=== PATIENT | female | born 1975 | race Caucasian/White ===

== ENCOUNTER 2017-02-24 10:17 | Emergency (ER) | payer BC ==
[2017-02-24] MEDS ORDERED: NS 0.9% 1000 ML* 2,000 ML IV ONE (10:32)
[2017-02-24] MEDS ORDERED: Ondansetron INJ* 2 MG/ML VIAL IV ONE ×2 (10:33→11:18)
[2017-02-24] MEDS ORDERED: Morphine INJ* 4 MG/ML 1 ML SYRINGE IV ONE (10:33)
[2017-02-24] MEDS ORDERED: Ketorolac INJ* 30 MG/ML 1 ML VIAL IV PUSH ONE (10:43)
[2017-02-24 10:51] LABS: Hematocrit 39 % (35-47); Hemoglobin 12.7 g/dl (12.0-16.0); Mean Corpuscular HGB Conc 33 g/dl (31-36); Mean Corpuscular Hemoglobin 30 pg (27-31); Mean Corpuscular Volume 90 fL (80-97); Mean Platelet Volume 9 um3 (7.4-10.4); Red Blood Count 4.31 10^6/ul (4.0-5.4); Red Cell Distribution Width 14 % (10.5-15); White Blood Count 8.3 10^3/ul (3.5-10.8)
[2017-02-24] MEDS ORDERED: HYDROmorphone* 1 MG/ML 1 ML SYR IV SLOW PU ONE (11:12)
[2017-02-24 11:13] LABS: ALT 10 U/L (7-52); AST 6 U/L (13-39); Alkaline Phosphatase 58 U/L (34-104); Anion Gap 7 mmol/L (2-11); BUN/Creatinine Ratio 8.4 (8-20); Blood Urea Nitrogen 8 mg/dL (6-24); C Reactive Protein < 1.00 mg/L (< 5.00); CO2 Carbon Dioxide 27 mmol/L (22-32); Chloride 106 mmol/L (101-111); EGFR Non-African American 64.5 (>60); Globulin 2.6 g/dL (2-4); Glucose 124 mg/dL (70-100); Lipase < 10 U/L (11.0-82.0); Potassium 3.5 mmol/L (3.5-5.0); Sodium 140 mmol/L (133-145); Total Protein 6.6 g/dL (6.4-8.9)
[2017-02-24] MEDS ORDERED: Ondansetron INJ* 2 MG/ML VIAL ONE (11:18)
--- NOTE | 2017-02-24 12:30 | RAD ---
INDICATION: 2 hours of right lower quadrant pain COMPARISON: None. TECHNIQUE: Real-time transabdominal and transvaginal ultrasound examination of the female pelvis including grayscale and Doppler color flow imaging. FINDINGS: Uterus: The uterus is normal in size and echogenicity measuring 9.6 x 5.2 x 7.6 cm. The endometrial stripe is smooth and uniform measuring 1.5 cm in thickness. There is a small amount of fluid at the fundal height endometrium. There are top normal but not pathologically enlarged periuterine veins, more so on the left than the right. Ovaries: The right and left ovary measure 3.9 x 1.7 x 2.5 cm and 4.1 x 1.7 x 3.4 cm, respectively. Normal arterial and venous waveforms are identified. Appearance is within normal limits for the patient's age. There is no free fluid in the cul-de-sac. IMPRESSION: 1. Top normal but not pathologically enlarged periuterine veins are noted in the left pelvis. The pelvic vasculature will be further depicted on the subsequent CT of the abdomen and pelvis pending at the time of this dictation. 2. The endometrial stripe is mildly thickened and there is a small amount of endometrial fluid noted at the level of fundus. If clinically warranted follow-up pelvic ultrasound can be acquired in approximately 6 weeks.
--- NOTE | 2017-02-24 12:55 | RAD ---
INDICATION: RIGHT side flank pain. Nausea. COMPARISON: February 24, 2017 pelvic ultrasound. TECHNIQUE: Multidetector CT images were obtained from the lung bases to the ischial tuberosities. Evaluation of the viscera is limited without IV contrast. Multiplanar reformation. REPORT: Unremarkable visualized inferior thorax. Unremarkable incompletely visualized liver. Multiple partially calcified dependent gallstones in the gallbladder without additional CT abnormality of the gallbladder. Negative for biliary dilatation. Unremarkable pancreas and spleen. Negative for CT abnormality of the upper GI, small bowel, or infra cecal appendix. Negative for CT abnormality of the colon. Negative for ascites or free air. No significant hernias evident. Normal adrenal glands. Mild RIGHT hydroureteronephrosis is traced to a 3 mm maximum dimension ureterovesicular junction stone. Minimal associated perinephric and periureteral inflammatory stranding. No additional urolithiasis evident. Negative for LEFT hydronephrosis. Negative for focal renal lesions. LEFT side pelvic phlebolith noted. Unremarkable anteverted uterus and adnexal regions. Negative for lymphadenopathy. Normal diameter abdominal aorta and iliac arteries. Physiologic distention of the IVC. Negative for suspicious focal osseous lesions. IMPRESSION: Mild RIGHT hydroureteronephrosis is traced to a 3 mm maximum dimension ureterovesicular junction stone.
[2017-02-24 14:02] LABS: Urine Bacteria 1+ (Absent); Urine Bilirubin Negative (Negative); Urine Glucose Negative (Negative); Urine Nitrite Negative (Negative)
[2017-02-24 14:31] VITALS: BP 124/78
--- NOTE | 2017-02-24 16:38 | ED ---
Pio Barnes Thomas, scribed for Raul Velásquez MD on 02/24/17 at 1042 . Abdominal Pain/Female - HPI Summary HPI Summary: The pt is a 41 y/o F presenting to the ED c/o RLQ abd pain that began suddenly today at 10:00. 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 The pain is described as constant and is alleviated and alleviated by nothing. The pain is rated 10/10. She cannot find a comfortable position. She denies any pain yesterday. The pt additionally c/o diaphoresis, nausea, and vomiting. The pt denies dysuria, flank pain, and kidney pain. PMHx: negative for kidney stones , ovarian cysts. PSHx: tubal ligation. SHx: no smoking, no drinking, no illicit drugs. She has never felt pain like this before. She has not had an appendectomy. LNMP 1.5 weeks ago. - History of Current Complaint Chief Complaint: EDAbdPain Stated Complaint: ABD PAIN/VOMITING Time Seen by Provider: 02/24/17 10:34 Hx Obtained From: Patient, Other: - co-workers supply history Onset/Duration: Sudden Onset, Lasting Minutes - 10:00 today Timing: Constant Severity Currently: Severe Pain Intensity: 10 Pain Scale Used: 0-10 Numeric Location: Other - RLQ Radiates: Yes Radiates to: Back Aggravating Factor(s): Nothing Alleviating Factor(s): Nothing Associated Signs and Symptoms: Positive: Diaphoresis, Back Pain, Nausea, Vomiting. Negative: Other: - NEG: dysuria, flank pain, kidney pain Allergies/Adverse Reactions: Allergies Allergy/AdvReac Type Severity Reaction Status Date / Time No Known Allergies Allergy Verified 02/24/17 11:27 Home Medications: Home Medications Hydrocodone Bitartrate [Hysingla ER] 40 mg PO DAILY 02/24/17 [History Confirmed 02/24/17] Hydrocodone/Acetamin 10/325(NF [[place] 10/325 (NF)] 1 tab PO BID PRN 02/24/17 [ History Confirmed 02/24/17] Modafinil TAB* [Provigil TAB*] 200 mg PO DAILY 02/24/17 [History Confirmed 02/24] PMH/Surg Hx/FS Hx/Imm Hx Previously Healthy: Yes Cardiovascular History: Denies: Hx Myocardial Infarction History: Denies: Hx Kidney Stones, Other Problems/Disorders - NEG: Hx of ovarian cysts - Surgical History Surgery Procedure, Year, and Place: tubal ligation Infectious Disease History: Denies: Traveled Outside the [place] in Last 30 Days - Family History Known Family History: Positive: Other - NEG: kidney stones - Social History Occupation: Employed Full-time - as an ICU nurse Alcohol Use: Occasionally Hx Substance Use: No Hx Tobacco Use: No Smoking Status (MU): Never Smoked Tobacco Review of Systems Positive: Skin Diaphoresis. Negative: Fever Eyes: Negative ENT: Negative Cardiovascular: Negative Respiratory: Negative Positive: Abdominal Pain - RLQ, constant, 05/05, began today at 10:00, cannot find comfortable position, Vomiting, Nausea Genitourinary: Negative Negative: dysuria, flank pain, other - NEG: kidney pain Musculoskeletal: Negative Skin: Negative Neurological: Negative Psychological: Normal All Other Systems Reviewed And Are Negative: Yes Physical Exam - Summary Physical Exam Summary: The patient is well-nourished in obvious moderate distress with colicky pain. Her history is supplied primarily by coworkers. The skin is warm and diaphoretic and skin color reflects adequate perfusion. There is decreased skin turgor. HEENT: The head is normocephalic and atraumatic. The pupils are equal and reactive. The conjunctivae are clear and without drainage. Nares are patent and without drainage. Mouth reveals moist mucous membranes and the throat is without erythema and exudate. The external ears are intact. Neck is supple with full range of motion and non-tender. There are no carotid bruits. There is no neck vein distension. Respiratory: Chest is non-tender. Lungs are clear to auscultation and breath sounds are symmetrical and equal. Cardiovascular: Hear is regular rate and rhythm. There is no murmur or rub auscultated. There is no peripheral edema and pulses are symmetrical and equal. Abdomen: The abdomen is soft and non-distended. There is no CVA tenderness. There is no rebound tenderness. There is McBurney's Point tenderness. There is no guarding. There are normal bowel sounds heard in all four quadrants and there is no organomegaly palpated. Musculoskeletal: Extremities are non-tender with full range of motion. There is good capillary refill. There is no peripheral edema or calf tenderness elicited. Neurological: Patient is alert and oriented to person, place and time. Psychiatric: The patient has an appropriate affect and does not exhibit any anxiety or depression. Triage Information Reviewed: Yes Vital Signs On Initial Exam: Initial Vitals Temp Pulse Resp BP Pulse Ox 98.1 F 77 20 126/74 100 02/24/17 10:21 02/24/17 10:21 02/24/17 10:21 02/24/17 10:21 02/24/17 10:21 Vital Signs Reviewed: Yes Diagnostics - Vital Signs Vital Signs Temp Pulse Resp BP Pulse Ox 02/24/17 10:32 98.4 F 74 18 139/83 99 02/24/17 10:21 98.1 F 77 20 126/74 100 - Laboratory Lab Results: Lab Results 02/24/17 02/24/17 02/24/17 Range/Units 10:30 10:30 10:30 WBC 8.3 (3.5-10.8) 10^3/ul RBC 4.31 (4.0-5.4) 10^6/ul Hgb 12.7 (12.0-16.0) g/dl Hct 39 (35-47) % MCV 90 (80-97) fL MCH 30 (27-31) pg MCHC 33 (31-36) g/dl RDW 14 (10.5-15) % Plt Count 230 (150-450) 10^3/ul MPV 9 (7.4-10.4) um3 Neut % (Auto) 44.5 (38-83) % Lymph % (Auto) 35.9 (25-47) % Gregory % (Auto) 9.5 H (1-9) % Eos % (Auto) 9.3 H (0-6) % Baso % (Auto) 0.8 (0-2) % Absolute Neuts (auto) 3.7 (1.5-7.7) 10^3/ul Absolute Lymphs (auto) 3.0 (1.0-4.8) 10^3/ul Absolute Monos (auto) 0.8 (0-0.8) 10^3/ul Absolute Eos (auto) 0.8 H (0-0.6) 10^3/ul Absolute Basos (auto) 0.1 (0-0.2) 10^3/ul Absolute Nucleated RBC 0.01 10^3/ul Nucleated RBC % 0.1 Sodium 140 (133-145) mmol/L Potassium 3.5 (3.5-5.0) mmol/L Chloride 106 (101-111) mmol/L Carbon Dioxide 27 (22-32) mmol/L Anion Gap 7 (2-11) mmol/L BUN 8 (6-24) mg/dL Creatinine 0.95 (0.51-0.95) mg/dL Est GFR ( Amer) 83.0 (>60) Est GFR (Non-Af Amer) 64.5 (>60) BUN/Creatinine Ratio 8.4 (8-20) Glucose 124 H (70-100) mg/dL Lactic Acid 1.8 (0.5-2.0) mmol/L Calcium 9.0 (8.6-10.3) mg/dL Total Bilirubin 0.40 (0.2-1.0) mg/dL AST 6 L (13-39) U/L ALT 10 (7-52) U/L Alkaline Phosphatase 58 (34-104) U/L C-Reactive Protein < 1.00 (< 5.00) mg/L Total Protein 6.6 (6.4-8.9) g/dL Albumin 4.0 (3.2-5.2) g/dL Globulin 2.6 (2-4) g/dL Albumin/Globulin Ratio 1.5 (1-3) Lipase < 10 L (11.0-82.0) U/L Beta HCG, Quant < 0.60 mIU/mL Urine Color Urine Appearance Urine pH (5-9) Ur Specific [address] (1.010-1.030) Urine Protein (Negative) Urine Ketones (Negative) Urine Blood (Negative) Urine Nitrate (Negative) Urine Bilirubin (Negative) Urine Urobilinogen (Negative) Ur Leukocyte Esterase (Negative) Urine WBC (Auto) (Absent) Urine RBC (Auto) (Absent) Ur Squamous Epith Cells (Absent) Urine Bacteria (Absent) Urine Glucose (Negative) 02/24/17 Range/Units 13:35 WBC (3.5-10.8) 10^3/ul RBC (4.0-5.4) 10^6/ul Hgb (12.0-16.0) g/dl Hct (35-47) % MCV (80-97) fL MCH (27-31) pg MCHC (31-36) g/dl RDW (10.5-15) % Plt Count (150-450) 10^3/ul MPV (7.4-10.4) um3 Neut % (Auto) (38-83) % Lymph % (Auto) (25-47) % Gregory % (Auto) (1-9) % Eos % (Auto) (0-6) % Baso % (Auto) (0-2) % Absolute Neuts (auto) (1.5-7.7) 10^3/ul Absolute Lymphs (auto) (1.0-4.8) 10^3/ul Absolute Monos (auto) (0-0.8) 10^3/ul Absolute Eos (auto) (0-0.6) 10^3/ul Absolute Basos (auto) (0-0.2) 10^3/ul Absolute Nucleated RBC 10^3/ul Nucleated RBC % Sodium (133-145) mmol/L Potassium (3.5-5.0) mmol/L Chloride (101-111) mmol/L Carbon Dioxide (22-32) mmol/L Anion Gap (2-11) mmol/L BUN (6-24) mg/dL Creatinine (0.51-0.95) mg/dL Est GFR ( Amer) (>60) Est GFR (Non-Af Amer) (>60) BUN/Creatinine Ratio (8-20) Glucose (70-100) mg/dL Lactic Acid (0.5-2.0) mmol/L Calcium (8.6-10.3) mg/dL Total Bilirubin (0.2-1.0) mg/dL AST (13-39) U/L ALT (7-52) U/L Alkaline Phosphatase (34-104) U/L C-Reactive Protein (< 5.00) mg/L Total Protein (6.4-8.9) g/dL Albumin (3.2-5.2) g/dL Globulin (2-4) g/dL Albumin/Globulin Ratio (1-3) Lipase (11.0-82.0) U/L Beta HCG, Quant mIU/mL Urine Color Yellow Urine Appearance Cloudy Urine pH 7.0 (5-9) Ur Specific [address] 1.015 (1.010-1.030) Urine Protein Negative (Negative) Urine Ketones 1+ H (Negative) Urine Blood Negative (Negative) Urine Nitrate Negative (Negative) Urine Bilirubin Negative (Negative) Urine Urobilinogen Negative (Negative) Ur Leukocyte Esterase Trace H (Negative) Urine WBC (Auto) Trace(0-5/hpf) (Absent) Urine RBC (Auto) 1+(3-5/hpf) H (Absent) Ur Squamous Epith Cells Present H (Absent) Urine Bacteria 1+ H (Absent) Urine Glucose Negative (Negative) Result Diagrams: 02/24/17 10:30 02/24/17 10:30 Lab Statement: Any lab studies that have been ordered have been reviewed, and results considered in the medical decision making process. - CT CT Abd/Pel CT Interpretation: Positive (See Comments) - Mild RIGHT hydroureteronephrosis is traced to a 3 mm maximum dimension ureterovesicular junction stone. CT Interpretation Completed By: Radiologist - Additional Comments Diagnostic Additional Comments: Transvaginal ultrasound. Interpreted by radiologist. Impression: 1. Top normal but not pathologically enlarged periuterine veins are noted in the left pelvis. The pelvic vasculature will be further depicted on the subsequent CT of the abdomen and pelvis pending at the time of this dictation. 2. The endometrial stripe is mildly thickened and there is a small amount of endometrial fluid noted at the level of fundus. If clinically warranted follow-up pelvic ultrasound can be acquired in approximately 6 weeks. Re-Evaluation - Re-Evaluation First Eval Re-Evaluation Time: 13:13 Change: Improved Comment: She is feeling much better. She was informed of CT and US results. Second Eval Re-Evaluation Time: 14:10 Change: Improved - She is feeling much better. She was informed of UA results. Abdominal Pain Fem Course/Dx - Course Course Of Treatment: ASSESSMENT AND PLAN: The pt is a 41 y/o F presenting to the ED c/o RLQ abd pain that began suddenly today at 10:00. 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 The pain is described as constant and is alleviated and alleviated by nothing. The pain is rated 10/10. She cannot find a comfortable position. She denies any pain yesterday. The pt additionally c/o diaphoresis, nausea, and vomiting. The pt denies dysuria, flank pain, and kidney pain. PMHx: negative for kidney stones, ovarian cysts. PSHx: tubal ligation. SHx: no smoking, no drinking, no illicit drugs. She has never felt pain like this before. She has not had an appendectomy. LNMP 1.[address] Abd/Pel reveals Mild RIGHT hydroureteronephrosis is traced to a 3 mm maximum dimension ureterovesicular junction stone. US Transvaginal shows 1. Top normal but not pathologically enlarged periuterine veins are noted in the left pelvis. The pelvic vasculature will be further depicted on the subsequent CT of the abdomen and pelvis pending at the time of this dictation. 2. The endometrial stripe is mildly thickened and there is a small amount of endometrial fluid noted at the level of fundus. If clinically warranted follow-up pelvic ultrasound can be acquired in approximately 6 weeks. Bloodwork shows Gregory% 9.5 , Eos % 8.3, absolute Eos 0.8%, glucose 124, AST 6, Lipase less than 10. UA shows 1+ ketones, trace leukocyte esterase, RBC 1+, present squamous cells, bacteria 1+. In the ED course she was given Toradol, morphine, Dilaudid, Zofran, and IV fluids. At 13:12, she was feeling much better. At 14:10, she feels much better. Patient is diagnosed with R distal ureteral calculus. She was prescribed Percocet and given a urine strainer. She will be discharged home with follow-up from Dr. Bruce. She is agreeable to this plan. - Diagnoses Differential Diagnosis: Positive: Appendicitis, Ectopic , Ovarian Cyst , Renal Colic, Urinary Tract Infection Provider Diagnoses: Right distal ureteral calculus Discharge - Discharge Plan Condition: Stable Disposition: HOME Prescriptions: oxyCODONE/Acetamin 5/325 MG* [Percocet 5/325 TAB*] 1 tab PO Q6H PRN #20 tab MDD 4 PRN Reason: pain Patient Education Materials: Ureteral Stones (ED) Referrals: Silvano Bruce MD [Medical Doctor] - 3 Days Additional Instructions: Take the Percocet as described. Use the urine strainer. The documentation as recorded by the Pio casanova Thomas accurately reflects the service I personally performed and the decisions made by , Raul Velásquez MD.
== END 2017-02-24 14:29 | disposition home or self-care (01) ==
LOC: ED 10:17
DX: N20.1 Calculus of ureter (principal)
CPT/HCPCS: 36415; 74176; 76830; 80053; 81003; 81015; 83605; 83690; 84702; 85025; 86140; 87077; 87086; 87186; 96360; 96374; 96375; 96376; 99283; J1170; J1885; J2270; J2405